=== PATIENT | female | born 1980 | race Caucasian/White ===

== ENCOUNTER 2017-02-27 06:53 | Day surgery (SDC) | payer OTHER ==
[~2017-02-27 06:53] MED LIST: IBUPROFEN800 M1 PO; IRON325 M1 PO; MULTIVITAMINS1 EAC6 PO; SURFAK240 M2 PO; SURFAK240 MG PO; SYNTHROID100 MC1 PO; SYNTHROID75 MCG; TYLENOL #31 TA1 PO; TYLENOL WITH C1 EACH PO
[2017-02-27 08:31] LABS: PROTHROMBIN TIME 11.9 SECONDS (9.0-13.6)
== END 2017-02-27 13:00 ==
LOC: WSU 06:53 → SHSB 06:54 → PACU 09:43 → SHSB 10:18
PROVIDERS: Obstetrics & Gynecology
PROC: 0UDB7ZX Extraction of Endometrium, Via Natural or Artificial Opening, Diagnostic (ICD-10-PCS; principal; 2017-02-27)
PROC: 0UDB7ZX Extraction of Endometrium, Via Natural or Artificial Opening, Diagnostic (ICD-10-PCS; 2017-02-27)
DX: N85.8 Other specified noninflammatory disorders of uterus (principal); N93.9 Abnormal uterine and vaginal bleeding, unspecified; E03.9 Hypothyroidism, unspecified; Z88.0 Allergy status to penicillin; Z98.890 Other specified postprocedural states